=== PATIENT | female | born 1965 | race Caucasian/White ===

== ENCOUNTER → 2023-08-22 11:22 | Outpatient (REF) | payer OTHER, SELFPAY | LOC: DHCBS MAIN 11:22 | PROVIDERS: ATTENDING PHYSICIAN Internal Medicine Cardiovascular Disease; FAMILY PHYSICIAN Emergency Medicine | DX: R00.2 Palpitations (principal) | CPT/HCPCS: 93306 ==

== ENCOUNTER 2023-10-09 06:36 | Day surgery (SDC) | payer OTHER, SELFPAY ==
[2023-10-09 10:19] LABS: Glucose - Point of Care 70 mg/dl (70-99)
[2023-10-09 10:24] VITALS: BMI 40.7
[2023-10-09 10:26] VITALS: BP 125/77
[2023-10-09 12:27] LABS: Glucose - Point of Care 88 mg/dl (70-99)
[2023-10-09 14:06] VITALS: BP 110/62
[2023-10-09 14:15] VITALS: BP 117/69
[2023-10-09 14:25] VITALS: BP 118/70
== END 2023-10-09 14:35 | disposition home or self-care (01) ==
LOC: SDS 06:36
PROVIDERS: ATTENDING PHYSICIAN Internal Medicine Gastroenterology
DX: K64.0 First degree hemorrhoids (principal); K63.89 Other specified diseases of intestine; K57.30 Diverticulosis of large intestine without perforation or abscess without bleeding; D12.3 Benign neoplasm of transverse colon; K63.5 Polyp of colon; D12.6 Benign neoplasm of colon, unspecified
CPT/HCPCS: 45390; 45380; 88305; 82962

== ENCOUNTER → 2024-03-24 14:00 | Outpatient (REF) | payer OTHER, SELFPAY | LOC: WDC 14:00 | PROVIDERS: ATTENDING PHYSICIAN Emergency Medicine | DX: Z12.31 Encounter for screening mammogram for malignant neoplasm of breast (principal); N95.1 Menopausal and female climacteric states; R10.9 Unspecified abdominal pain | CPT/HCPCS: 76770; 77063; 77067; 77080 ==

== ENCOUNTER → 2024-04-06 06:22 | Day surgery (SDC) | payer OTHER, SELFPAY | LOC: GI 06:22 | PROVIDERS: ATTENDING PHYSICIAN Internal Medicine Gastroenterology | DX: Z12.11 Encounter for screening for malignant neoplasm of colon (principal); D12.3 Benign neoplasm of transverse colon; K56.2 Volvulus; K64.0 First degree hemorrhoids; Z86.0100 Personal history of colon polyps, unspecified; Z98.890 Other specified postprocedural states | CPT/HCPCS: 45380; 88305 ==

== ENCOUNTER → 2024-05-27 09:18 | Outpatient (REF) | payer OTHER, SELFPAY | LOC: RAD 09:18 | PROVIDERS: ATTENDING PHYSICIAN Nurse Practitioner; FAMILY PHYSICIAN Emergency Medicine | DX: N81.4 Uterovaginal prolapse, unspecified (principal); N39.46 Mixed incontinence | CPT/HCPCS: 76770; 76830; 76856 ==

== ENCOUNTER → 2024-06-22 12:27 | Outpatient (REF) | payer OTHER, SELFPAY | LOC: RAD 12:27 | PROVIDERS: ATTENDING PHYSICIAN Nurse Practitioner; FAMILY PHYSICIAN Emergency Medicine | DX: R93.422 Abnormal radiologic findings on diagnostic imaging of left kidney (principal) | CPT/HCPCS: 74170; Q9967 ==

== ENCOUNTER 2024-08-03 05:56 | Day surgery (SDC) | payer OTHER, SELFPAY ==
[2024-07-23 08:45] LABS: Hematocrit 33.4 % (37.0-47.0); Mean Corp Hgb Conc. 32.9 g/dL (33.0-37.0); Mean Corpuscular Hgb 31.1 pg (27.0-31.0); Mean Corpuscular Volume 94.4 fL (81.0-99.0); Mean Platelet Volume 8.6 fL (7.4-10.4); Platelet Count 463 10^3/uL (130-400); Red Blood Cell Count 3.54 10^6/uL (4.20-5.40); Red Cell Dist. Width 13.8 % (11.5-14.5); White Blood Cell Count 12.2 10^3/uL (4.8-10.8)
[2024-07-23 09:05] LABS: Blood Urea Nitrogen 9 mg/dl (7-17); Carbon Dioxide 25 mmol/L (22-30); Chloride 100 mmol/L (98-107); Glucose 91 mg/dl (70-99); Potassium 4.2 mmol/L (3.5-5.1); Sodium 134 mmol/L (135-145); eGFR > 60.00
[2024-07-23 14:08] VITALS: BMI 34.5
[2024-08-03] VITALS (9 sets, daily range): BP systolic 113–133; BP diastolic 66–78; BMI 34.5
[2024-08-03] MEDS: Pyridium 200 MG PO (06:31)
[2024-08-03] MEDS: HEPARIN 5000 UNITS SC (06:32)
[2024-08-03] MEDS: NORMOSOL-R/PLASMALYTE-A 1000 IV ×3 (06:51→21:01)
[2024-08-03 13:23] LABS: Hemoglobin 11.6 g/dL (12.0-16.0)
[2024-08-03 13:34] LABS: Blood Urea Nitrogen 7 mg/dl (7-17); Carbon Dioxide 26 mmol/L (22-30); Chloride 102 mmol/L (98-107); Estimated Creatinine Clearance 85 ml/min; Glucose 167 mg/dl (70-99); Potassium 4.3 mmol/L (3.5-5.1); Sodium 138 mmol/L (135-145); eGFR > 60.00
[2024-08-03] MEDS: ROXICODONE 5 MG PO ×3 (16:05→23:58)
--- NOTE | 2024-08-03 16:23 | PTCARENOTE ---
Pt requesting pain medicine for c/o pain of 7 out of 10. Medicated as per orders with Roxicet 5 mg po as she is tolerating po fluids. Requesting light dinner tray of soup and grilled cheese. No bleeding noted from vagina and five small incisions
with Dermabond clean, dry, and well approximated.
[2024-08-03] MEDS: MYLICON 80 MG PO ×2 (16:53→20:33)
[2024-08-03] MEDS: LOVENOX 40 MG SC (18:44)
[2024-08-03] MEDS: COLACE 100 MG PO (20:33)
[2024-08-04 00:01] VITALS: BP 98/57
[2024-08-04 04:00] VITALS: BP 104/57
[2024-08-04] MEDS: NORMOSOL-R/PLASMALYTE-A 1000 IV (04:17)
[2024-08-04] MEDS: ROXICODONE 5 MG PO ×3 (04:17→13:33)
[2024-08-04] MEDS: MYLICON 80 MG PO ×2 (05:39→08:48)
[2024-08-04 05:43] LABS: Hematocrit 33.6 % (37.0-47.0); Hemoglobin 10.7 g/dL (12.0-16.0); Mean Corp Hgb Conc. 31.8 g/dL (33.0-37.0); Mean Corpuscular Volume 97.4 fL (81.0-99.0); Mean Platelet Volume 8.4 fL (7.4-10.4); Platelet Count 349 10^3/uL (130-400); Red Blood Cell Count 3.45 10^6/uL (4.20-5.40); Red Cell Dist. Width 14.1 % (11.5-14.5); White Blood Cell Count 10.4 10^3/uL (4.8-10.8)
--- NOTE | 2024-08-04 05:54 | PTCARENOTE ---
vang catheter and vaginal packing removed without difficulty as ordered at 0515.pt removed cpap. pt assisted oob to chair, tolerated well. call mosqueda within reach.
[2024-08-04 05:57] LABS: Blood Urea Nitrogen 6 mg/dl (7-17); Carbon Dioxide 24 mmol/L (22-30); Chloride 104 mmol/L (98-107); Estimated Creatinine Clearance 97 ml/min; Potassium 4.1 mmol/L (3.5-5.1); Sodium 137 mmol/L (135-145)
[2024-08-04] MEDS: COLACE 100 MG PO (08:37)
[2024-08-04 09:21] VITALS: BP 107/67
--- NOTE | 2024-08-04 09:32 | PTCARENOTE ---
Received patient resting in chair, vss, lungs CTA, Abdomen soft and pt c/o achyness all over abdomen, surgical sites Clean and intact with no drainage. HRR, pt due to void at present. Scant amount of blood noted on vaginal pad after ambulation.
Iv fluids infusing per md order and thigh hi teds and compression sleeves in place. Pt tolerated breakfast and encouraged pt to increase ambulation and to notify me when needing to use the bathroom or if vaginal bleeding increases. pt verabalizes
above instruction
--- NOTE | 2024-08-04 10:03 | W.PN.GYN ---
Today's Communication / Plan
-
1. voiding trial
2. d/c home
Physician Note
-
Assessment and Plan:
59 yo woman POD 1 s/p robotic TLH, left salpingectomy, sacrocolpopexy, JAVON, posterior colporrhaphy, cystoscopy. Patient is currently impeding postoperative milestones and doing well. She was admitted overnight due to the extended length of the
case and significant adhesive disease requiring over 2 hours of lysis of adhesions. Patient notes that she is ambulating to her chair and her pain is well-controlled. Patient's hemoglobin has remained stable and vital signs are within normal
limits.
#1 postoperative care
Hep-Lock IV
Regular diet
DVT prophylaxis: SCDs, ambulation, Lovenox
CBC: Within normal limit, hemoglobin stable
BMP: Within normal limit
Urine output adequate
Voiding trial pending, Ruiz removed at 5 AM
Vaginal packing removed
#2 dispo
Plan for DC home today after voiding trial
Subjective
Patient has no acute acute complaints this morning on rounds. Pain well-controlled. Patient sitting in chair and was able to tolerate dinner. Denies any nausea or vomiting. Patient denies any chest pain shortness of breath fevers or chills.
Denies any significant vaginal bleeding.
Objective
Intake and Output
08/02/24 08/03/24 08/04/24 08/05/24
06:59 06:59 06:59 06:59
Intake Total 3100 / 3100 600 / 600
Output Total 5625 / 5625
Balance -2525 / -2525 600 / 600
Intake:
Oral fluids 1200 / 1200 350 / 350
IV fluids (Total) 1900 / 1900 250 / 250
Normosol 300 / 300
Output:
Urine, Ruiz 5625 / 5625
Vital Signs
Temp Pulse Resp BP Pulse Ox
98.0 F 65 16 107/67 93
08/04/24 09:21 08/04/24 09:21 08/04/24 09:21 08/04/24 09:21 08/04/24 04:00
Lab Results
08/04/24 05:21
08/04/24 05:21
Exam:
Abdomen: Soft, nontender, nondistended, no guarding or rebound
Incisions: Clean dry and intact
: Minimal vaginal spotting, packing is removed
--- NOTE | 2024-08-04 10:22 | CM ---
Met with pt at bedside
Pt reports she lives with her and 2 adult sons in a 2 story home; + 1/2 bath on FF, 2 steps to enter, 13 steps to 2nd fl
Independent, employed FT, drives
DME - CPAP
SNF/HH - denies past hx
Has ride at d/c
PCP - Karen Smith
Pharm - [facility]
Plan - anticipate home no needs
[2024-08-04 11:28] VITALS: BP 120/83
--- NOTE | 2024-08-04 11:29 | PTCARENOTE ---
Pt oob to bathroom and unable to urinate at present, encouraged patient to increase fluid intake and to revisit the bathroom in 30 minutes.
--- NOTE | 2024-08-04 15:19 | PTCARENOTE ---
After several attempts to urinate, pt was able to urinate in a sitz bath @ 1245 and stated she emptied her bladder. Bladder scanner indicated 700cc PVR. Vang cath placed per M.D. and drained 700, the vang was milked for an additional 400 cc of
urine. Patient discharged to home with a Vang catheter and instructed on care of Vang. Pt instructed to follow up with MD on Friday for vang removal. Pt in good spirits and discharged to home.
--- NOTE | 2024-08-04 15:31 | PTCARENOTE ---
IV int to right antecub d/c prior to discharge.
== END 2024-08-04 15:23 | disposition home or self-care (01) ==
LOC: SDS 05:56
PROVIDERS: ATTENDING PHYSICIAN Obstetrics & Gynecology; FAMILY PHYSICIAN Emergency Medicine
DX: N81.4 Uterovaginal prolapse, unspecified (principal); D25.9 Leiomyoma of uterus, unspecified; N80.03 Adenomyosis of the uterus; N83.8 Other noninflammatory disorders of ovary, fallopian tube and broad ligament
CPT/HCPCS: 57425; 58571; 57250; 88305; 36415; 80048; 80051; 82565; 84520; 85014; 85018; 85027; 86850; 86900; 86901; 93005; 94660; C1713; C1763; J1580

== ENCOUNTER → 2024-11-11 18:32 | Outpatient (REF) | payer OTHER, SELFPAY | LOC: MRI 18:32 | PROVIDERS: ATTENDING PHYSICIAN Emergency Medicine | DX: E66.811 Obesity, class 1 (principal); M54.50 Low back pain, unspecified; M79.605 Pain in left leg; M21.372 Foot drop, left foot | CPT/HCPCS: 72158; A9575 ==

== ENCOUNTER → 2024-11-16 18:39 | Outpatient (REF) | payer OTHER, SELFPAY | LOC: MRI 18:39 | PROVIDERS: ATTENDING PHYSICIAN Emergency Medicine | DX: E66.811 Obesity, class 1 (principal); G56.92 Unspecified mononeuropathy of left upper limb; R20.0 Anesthesia of skin; R20.2 Paresthesia of skin | CPT/HCPCS: 72156; A9575 ==

== ENCOUNTER → 2024-12-09 20:16 | Outpatient (REF) | payer OTHER, SELFPAY | LOC: MRI 20:16 | PROVIDERS: ATTENDING PHYSICIAN Emergency Medicine | DX: R93.89 Abnormal findings on diagnostic imaging of other specified body structures (principal) | CPT/HCPCS: 70553; A9575 ==

== ENCOUNTER → 2025-01-13 12:18 | Outpatient (REF) | payer OTHER, SELFPAY ==
[2025-01-13 14:17] VITALS: BP 132/77; BP_SYST 71
[2025-01-13 14:22] LABS: INR 1.02; PT 13.9 Sec (11.4-14.6)
[2025-01-13 14:23] LABS: APTT 29.7 Sec (23.4-35.0)
[2025-01-13 14:52] LABS: Iron 57 ug/dl (37-170)
[2025-01-13 14:58] LABS: C-Reactive Protein < 5.00 mg/L (0.0-10.00)
[2025-01-13 15:00] VITALS: BP 121/67; BP_SYST 78
[2025-01-13 15:02] LABS: Total Iron Binding Capacity 267 ug/dl (265-497)
[2025-01-13 15:15] LABS: Vitamin D, 25-OH*** 50.3 ng/mL (30-80)
[2025-01-13 15:54] VITALS: BP 119/69
[2025-01-13 16:04] LABS: Folate 13.3 ng/ml (2.76-20); Vitamin B12 292 pg/ml (239-931)
[2025-01-13 17:07] LABS: CSF Color Colorless
[2025-01-13 17:08] LABS: Red Cell Count/CSF 10 mm^3; White Cell Count/CSF 0 mm^3 (0-5)
[2025-01-13 17:13] LABS: CSF Color Colorless; Red Cell Count/CSF 1 mm^3; White Cell Count/CSF 2 mm^3 (0-5)
[2025-01-13 18:45] LABS: Hepatitis B Surface Antigen Negative (Negative)
[2025-01-13 19:04] LABS: Hepatitis C Antibody Negative (Negative)
[2025-01-14 09:31] LABS: CRP, Ultra Sensitive 1.17 mg/L (0.30-5.00)
[2025-01-14 13:03] LABS: Syphilis/T. pallidum Ab Reflex Negative (Negative)
== END ==
LOC: RADI 12:18
PROVIDERS: ATTENDING PHYSICIAN Psychiatry & Neurology Neurology; FAMILY PHYSICIAN Emergency Medicine; REFERRING PHYSICIAN Physician Assistant
DX: G37.3 Acute transverse myelitis in demyelinating disease of central nervous system (principal)
CPT/HCPCS: 36415; 62328; 82040; 82042; 82085; 82164; 82306; 82525; 82550; 82607; 82652; 82746; 82784; 82945; 83516; 83521; 83540; 83550; 83916; 84155; 84157; 84165; 84207; 84425; 84439; 84443; 85610; 85652; 85730; 86038; 86140; 86141; 86235; 86334; 86430; 86480; 86592; 86618; 86704; 86706; 86780; 86787; 86803; 87340; 87389; 89051

== ENCOUNTER 2025-01-24 09:44 | Outpatient (RCR) | payer OTHER, SELFPAY | END 2025-01-24 23:59 | disposition home or self-care (01) | LOC: RPT 09:44 | PROVIDERS: ATTENDING PHYSICIAN Orthopaedic Surgery; FAMILY PHYSICIAN Emergency Medicine | DX: M70.72 Other bursitis of hip, left hip (principal); M54.12 Radiculopathy, cervical region; M54.16 Radiculopathy, lumbar region; Z73.6 Limitation of activities due to disability; R26.89 Other abnormalities of gait and mobility; G35 Multiple sclerosis | CPT/HCPCS: 97163; 97530 ==

== ENCOUNTER 2025-02-28 17:06 | Outpatient (RCR) | payer OTHER, SELFPAY | END 2025-02-28 23:59 | disposition home or self-care (01) | LOC: RPT 17:06 | PROVIDERS: ATTENDING PHYSICIAN Orthopaedic Surgery; FAMILY PHYSICIAN Emergency Medicine | DX: M70.72 Other bursitis of hip, left hip (principal); M54.12 Radiculopathy, cervical region; M54.16 Radiculopathy, lumbar region; Z73.6 Limitation of activities due to disability; R26.89 Other abnormalities of gait and mobility; G35 Multiple sclerosis | CPT/HCPCS: 97010; 97110; 97112; 97116; 97530 ==

== ENCOUNTER 2025-03-11 12:06 | Emergency (ER) | payer OTHER, SELFPAY ==
[2025-03-11] VITALS (7 sets, daily range): BP systolic 121–124; BP diastolic 75–81; BMI 25.3
[2025-03-11 13:04] LABS: ALT (SGPT) 19 U/L (0-35); AST (SGOT) 21 U/L (14-36); Albumin 4.6 g/dl (3.5-5.0); Alkaline Phosphatase 62 U/L (38-126); Blood Urea Nitrogen 11 mg/dl (7-17); Calcium 9.5 mg/dl (8.4-10.2); Carbon Dioxide 29 mmol/L (22-30); Chloride 103 mmol/L (98-107); Glucose 88 mg/dl (70-99); Potassium 4.3 mmol/L (3.5-5.1); Sodium 137 mmol/L (135-145); Total Protein 7.1 g/dl (6.3-8.2); eGFR > 60.00
[2025-03-11 13:07] LABS: Troponin I < 0.012 ng/ml
[2025-03-11 13:59] LABS: APTT 29.3 Sec (23.4-35.0)
[2025-03-11 14:03] LABS: Hematocrit 37.8 % (37.0-47.0); Hemoglobin 12.6 g/dL (12.0-16.0); Mean Corp Hgb Conc. 33.3 g/dL (33.0-37.0); Mean Corpuscular Volume 91.7 fL (81.0-99.0); Nucleated Red Blood Cells % 0 %; Platelet Count 293 10^3/uL (130-400); Red Cell Dist. Width 12.4 % (11.5-14.5)
--- NOTE | 2025-03-11 14:04 | ED.GENMED ---
History of Present Illness
General
Chief Complaint: Chest Pain
Source: patient
Time Seen by Provider: 03/11/25 13:52
History of Present Illness
History of Present Illness:
60-year-old female presents to the emergency room complaining of chest pain. Patient states she was driving her work vehicle when she felt a unusual pop sensation in her chest. She then coughed. She felt a little weak and dizzy at that time.
Symptoms appear much resolved. No chest pain at this time. No shortness of breath. Patient initially went to an urgent care who referred her here. Patient denies any pain in her lower extremities. She denies pain when she takes a deep breath.
Past History
Past History
ED Past Medical History: GERD, Other (Migraine headaches) and Other (Obstructive sleep apnea)
ED Past Surgical History: Appendectomy, Cholecystectomy, Gynecological (D and C) and Other (Umbilical hernia repair)
Social History
Tobacco: Non-smoker
Alcohol: None
Personal:
Living: with family
Employment: Employed
Family History
Family History: Other (Noncontributory)
Phy Exam
Physical Exam
Physical Exam:
General: Awake, Alert, Oriented X3. No acute distress.
Vitals: unremarkable
Head: Atraumatic
Eyes: Pupils equal, EOMI
Throat: Airway intact, no exudates
Neck: Trachea midline
Lungs: Clear and equal b/l
Heart: Regular rate, no murmurs
Abd: Soft, Nontender, No pulsatile mass
Neuro: Nonfocal
Skin: Warm, dry, no rash
Extremities: pulses equal b/l, no edema
Scores
Heart Score for Chest Pain Patients
STEMI patient?: No
History: Slightly or Non-Suspicious
ECG: Nonspecific Repolarization
Age: >45 - <65 years
Risk Factors: 1 or 2 Risk Factors
Troponin: </= Normal Limit
Heart Score for Chest Pain Patients: 3
Heart Score Risk: 2.5% MACE over next 6 weeks
Course
Orders/Labs/Results
Orders:
Orders
03/11/25 12:19
Electrocardiogram (*1) Urgent
Reason for Study: Chest Pain
EKG- Treatment ONCE
03/11/25 12:31
Comprehensive Metabolic Panel Urgent
Troponin I Urgent
03/11/25 13:34
Complete Blood Count/With Diff Urgent
PTT Urgent
03/11/25 14:01
CR Chest - 2 Views Urgent
Comment:
Reason For Exam: chest pain
Abnormal Lab Results
03/11/25
13:34
RBC 4.12 L 10^6/uL
(4.20-5.40)
Absolute Monos (auto) 0.8 H 10^3/uL
(0.1-0.6)
Monocytes % 11.3 H %
(1.7-9.3)
03/11/25 13:34
03/11/25 12:31
Vital Signs
Initial and Last Documented VS:
Initial Vital Signs
Temp Pulse Resp BP Pulse Ox
97.8 F 79 18 123/79 98
03/11/25 12:15 03/11/25 12:15 03/11/25 12:15 03/11/25 12:15 03/11/25 12:15
Last Documented Vital Signs
Temp Pulse Resp BP Pulse Ox
98.5 F 82 20 121/75 99
03/11/25 13:39 03/11/25 16:18 03/11/25 16:18 03/11/25 16:18 03/11/25 16:18
MDM/Problems Addressed
Differential Diagnosis Includes:
Pneumothorax, chest wall pain, anginal equivalent
MDM/Problems Addressed:
Patient presents with unusual chest pain for like a pop. Chest x-ray shows no acute abnormality. Troponin is normal. EKG shows no ischemic changes. She was observed in the emergency room and is quite stable. No indication for hospitalization.
Will have her follow-up with a primary care provider and cardiology as an outpatient
Chronic conditions affecting care: Other (Multiple sclerosis, high cholesterol)
*Radiology
Radiology exam reviewed: preliminary read by ED provider (No acute abnormality evaluated patient's chest x-ray)
*Pulse Oximetry
SaO2: 99
Oxygen Mode of Delivery: Room air
Patient hypoxic: no
*EKG
Interpreted by ED Provider?: Yes
Interpretation: normal
Heart Rate: 75
Rate: normal
Rhythm: sinus
[place]: normal axis
Interval: normal interval
QRS Pattern: normal QRS
Ischemia: no ischemia
*[employer] Interpretation
Rate: normal
Rhythm: sinus
*Critical Care Note
Total Time (30-74mins, 75-104mins- exclusive of procedures): Not Applicable
ED Attending Note
-
Portions of this chart may have been created with voice recognition software.� Occasional wrong word or��sound alike� substitutions may have occurred due to the inherent limitations of voice recognition software.
Discharge Plan
Departure
Patient Disposition: Home (Routine Discharge)
Date of Disposition: 03/11/25
Time of Disposition: 16:29
Patient with high blood pressure during this ER visit?: No
Condition: Good
Discharge Problem:
Chest pain
Instructions: Chest Pain DCA Follow Up
Prescriptions:
No Action
[id number]-acetaminophen Capsule
2 cap PO HSPRN PRN (Reason: Cold Symptoms)
atorvastatin 10 mg Tablet
10 mg PO DAILY
ascorbic acid (vitamin C) [Vitamin C] 1,000 mg Tablet
1 g PO BID
acetaminophen 325 mg Tablet
650 - 975 mg PO PRN PRN (Reason: Headache)
zinc acetate 50 mg (zinc) Capsule
50 mg PO DAILY
diphenhydramine HCl 50 mg Capsule
50 mg PO HS PRN (Reason: Insomnia)
ibuprofen 200 mg Capsule
200 mg PO Q6H PRN (Reason: pain)
ferrous sulfate [iron] 325 mg (65 mg iron) Tablet
325 mg PO DAILY
Daytime Cold-Flu 5-10-325 mg/15 mL Liquid
30 ml PO PRN PRN (Reason: Cold Symptoms)
magnesium glycinate 100 mg Tablet
100 mg PO HS
coQ10 (ubiquinol) 100 mg Capsule
100 mg PO DAILY
Women's 50 Plus Multivitamin 400 mcg-500 mg calcium-20 mcg Tablet
1 tab PO DAILY
guaifenesin [Mucinex] 600 mg Tablet Extended Release 12hr
600 mg PO Q12H PRN (Reason: Cough)
Wegovy 2.4 mg/0.75 mL Pen Injector
2.4 mg SC WE
loperamide 2 mg Capsule
4 mg PO PRN PRN (Reason: Diarrhea)
calcium carbonate [Tums] 200 mg calcium (500 mg) Tablet,Chewable
400 - 800 mg PO PRN PRN (Reason: Indigestion)
Metamucil 3.4 gram/5.4 gram Powder
1 tbsp PO DAILY
docusate sodium 100 mg Capsule
100 mg PO BID Qty: 60 0RF
simethicone 80 mg Tablet,Chewable
80 mg PO Q6HPRN PRN (Reason: gas distention) Qty: 20 0RF
oxycodone 5 mg Tablet
5 mg PO Q4HPRN PRN (Reason: severe pain when tolerating PO) Qty: 10 0RF
Referrals:
Deo Cosme MD [Family Provider, Family Practice]
Stand Alone Forms: Return to Work
Interventions
Interventions:
*Risk Screen - Suicide Last Done: 03/11/25 12:15
*General Assessment Last Done: 03/11/25 12:15
*Neglect/Abuse Screening Last Done: 03/11/25 13:39
*ED- Fall Risk Assessment Last Done: 03/11/25 13:39
*ED COVID-19 Vaccine History Last Done: 03/11/25 12:15
*ED Influenza Vaccine History Last Done: 03/11/25 12:15
*Nursing Disposition Last Done: 03/11/25 16:57
ED- Cardiac Assessment Last Done: 03/11/25 13:39
Discharge Date and Time
Print Language: TURKISH
== END 2025-03-11 16:57 | disposition home or self-care (01) ==
LOC: EMR 12:06
PROVIDERS: Student in an Organized Health Care Education/Training Program; EMERGENCY PHYSICIAN Emergency Medicine; FAMILY PHYSICIAN Family Medicine
DX: R07.89 Other chest pain (principal); E78.00 Pure hypercholesterolemia, unspecified; G35.D Multiple sclerosis, unspecified; G47.33 Obstructive sleep apnea (adult) (pediatric); Z90.49 Acquired absence of other specified parts of digestive tract
CPT/HCPCS: 71046; 80053; 84484; 85025; 85730; 93005; 99283

== ENCOUNTER 2025-03-28 09:39 | Outpatient (RCR) | payer OTHER, SELFPAY | END 2025-03-28 23:59 | disposition home or self-care (01) | LOC: RPT 09:39 | PROVIDERS: ATTENDING PHYSICIAN Orthopaedic Surgery; FAMILY PHYSICIAN Emergency Medicine | DX: M70.72 Other bursitis of hip, left hip (principal); M54.12 Radiculopathy, cervical region; M54.16 Radiculopathy, lumbar region; Z73.6 Limitation of activities due to disability; R26.89 Other abnormalities of gait and mobility; G35 Multiple sclerosis; G35.D Multiple sclerosis, unspecified | CPT/HCPCS: 97110; 97112; 97140 ==

== ENCOUNTER → 2025-03-28 11:07 | Outpatient (REF) | payer OTHER, SELFPAY | LOC: HWRCS 11:07 | PROVIDERS: ATTENDING PHYSICIAN Internal Medicine Cardiovascular Disease; FAMILY PHYSICIAN Student in an Organized Health Care Education/Training Program | DX: R07.89 Other chest pain (principal) | CPT/HCPCS: 78452; 93017; A9500; J2785 ==

== ENCOUNTER 2025-04-04 13:50 | Outpatient (RCR) | payer OTHER, SELFPAY | END 2025-04-18 23:59 | disposition home or self-care (01) | LOC: RPT 13:50 | PROVIDERS: ATTENDING PHYSICIAN Orthopaedic Surgery; FAMILY PHYSICIAN Emergency Medicine | DX: M70.72 Other bursitis of hip, left hip (principal); M54.12 Radiculopathy, cervical region; M54.16 Radiculopathy, lumbar region; Z73.6 Limitation of activities due to disability; R26.89 Other abnormalities of gait and mobility; G35.D Multiple sclerosis, unspecified; G35 Multiple sclerosis | CPT/HCPCS: 97110; 97112; 97530 ==

== ENCOUNTER 2025-04-12 06:13 | Day surgery (SDC) | payer OTHER, SELFPAY ==
[2025-04-12 10:02] VITALS: BMI 36.8
[2025-04-12 10:03] VITALS: BMI 36.8
[2025-04-12 10:04] VITALS: BP 114/66
[2025-04-12 11:15] VITALS: BP 103/67
[2025-04-12 11:30] VITALS: BP 104/71
[2025-04-12 11:40] VITALS: BP 99/88
== END 2025-04-12 11:58 | disposition home or self-care (01) ==
LOC: SDS 06:13
PROVIDERS: ATTENDING PHYSICIAN Internal Medicine Gastroenterology
DX: K63.5 Polyp of colon (principal); K64.0 First degree hemorrhoids; Z86.0101 Personal history of adenomatous and serrated colon polyps; Z98.890 Other specified postprocedural states
CPT/HCPCS: 45388; 88305